=== PATIENT | female | born 1955 | race Caucasian/White ===

== ENCOUNTER 2018-10-09 05:55 | Day surgery (SDC) | payer MEDICAID, OTHER ==
[~2018-10-09] VITALS: Ht 142.2 cm; Wt 69.2 kg
[~2018-10-09 05:55] MED LIST: IBUP800T48
[2018-10-09 07:06] VITALS: Ht 142.2 cm; Wt 69.2 kg
[2018-10-09] MEDS ORDERED: SIMV80TA18 PO (07:08)
[2018-10-09] MEDS ORDERED: ASPI-903 PO (07:08)
[2018-10-09 07:25] VITALS: BP 146/68; RESP 14
[2018-10-09] MEDS ORDERED: PROPOFOL 60 ML ONE (07:26)
[2018-10-09] MEDS ORDERED: LIDOCAINE 2% (SDV) 5 ML INJ ONE (07:26)
--- NOTE | 2018-10-09 07:33 | PREAC ---
Date/Time of Note Date/Time of Note DATE: 10/09/18 TIME: 07:32 Anesthesia Eval and Record Evaluation Time Pre-Procedure Interview DATE: 10/09/18 TIME: 07:32 Age 63 Sex female NPO: 8 hrs Preoperative diagnosis screening; GERD; change in bowel habits Planned procedure EGD/Colonoscopy Past Medical History Past Medical History: Includes Cardio: Dyslipidemia GI: Obesity Psych: Depression, Bipolar Surgery & Anesthesia Issues No known issue Meds Anticoagulation: No Beta Talisha within 24 hr: No Reason Beta Talisha not given: Pt. not on B-Talisha Reported Medications Simvastatin* (Simvastatin*) 80 Mg Tablet, 20 MG PO QHS, #30 TAB 10/09/18 Aspirin* (Aspirin* Chew) 81 Mg Tab.chew, 650 MG PO DAILY, TAB.CHEW 10/09/18 Discontinued Reported Medications Ibuprofen* (Motrin*) 800 Mg Tab 10/19/10 Meds reviewed: Yes Allergies Coded Allergies: No Known Allergy (Verified , 10/09/18) Allergies Reviewed: Yes Labs/Studies Labs Reviewed: Reviewed by anesthesiologist test: N/A Pre-procedure Exam Last vitals Vital Signs Date Temp Pulse Resp B/P (MAP) Pulse Ox O2 O2 Flow FiO2 Time Delivery Rate 10/09/18 96.6 14 146/68 98 Room Air 07:25 (94) Airway: Adequate mouth opening, Adequate thyromental dist Mallampati: Mallampati II Teeth: Normal (missing molars) Lung: Normal Heart: Normal ASA Physical Status ASA physical status: 2 Emergency: None Planned Anesthetic General/MAC: MAC Pre-operative Attestations Prior to commencing anesthesia and surgery, the patient was re-evaluated, there was verification of: *The patient's identity *The results of appropriate recent lab work and preoperative vital signs *The above evaluation not changing prior to induction *Anesthetic plan, risk benefits, alternative and complications discussed with patient/family; questions answered; patient/family understands, accepts and wishes to proceed. CECILIA MONTOYA October 09, 2018 07:33
[2018-10-09] MEDS ORDERED: ALBUTEROL 0.083% (NEB) 2.5 MG/3 ML AMP HHN PRN (08:00)
[2018-10-09] MEDS ORDERED: ONDANSETRON 4 MG INJ IV PRN (08:00)
[2018-10-09] MEDS ORDERED: ACETAMINOPHEN 500 MG TAB PO PRN (08:00)
[2018-10-09] MEDS ORDERED: FENTAnyl 50 MCG/ML VIAL IV PRN (08:00)
--- NOTE | 2018-10-09 08:12 | PAC ---
Date/Time of Note Date/Time of Note DATE: 10/09/18 TIME: 08:11 Post-Anesthesia Notes Post-Anesthesia Note Last documented vital signs Vital Signs Date Temp Pulse Resp B/P (MAP) Pulse Ox O2 O2 Flow FiO2 Time Delivery Rate 10/09/18 96.6 98 68 14 16 146/68 98 99 Room 07:25 081 (94) 98/5 Air nc 4L 0 1 Activity: WNL Respiratory function: WNL Cardiovascular function: WNL Mental status: Baseline Pain reasonably controlled: Yes Hydration appropriate: Yes Nausea/Vomiting absent: Yes CECILIA MONTOYA October 09, 2018 08:12
[2018-10-09 09:07] VITALS: BP 146/65; RESP 20
== END 2018-10-09 11:04 | disposition home or self-care (01) ==
LOC: GIL 05:55 → EDBD 07:30 → GIL 11:04
PROVIDERS: ATTEND Internal Medicine Gastroenterology
DX: Z12.11 Encounter for screening for malignant neoplasm of colon (principal); K44.9 Diaphragmatic hernia without obstruction or gangrene; D12.6 Benign neoplasm of colon, unspecified; K64.9 Unspecified hemorrhoids
CPT/HCPCS: 88305; 88312